=== PATIENT | female | born 1965 | race Caucasian/White ===

== ENCOUNTER → 2022-01-20 15:08 | Outpatient (CLI) | payer OTHER, SELFPAY ==
--- NOTE | ~2022-01-20 | XR_ITS ---
EXAMINATION:XR_[id number]_CR DATE: 01/20/2022 15:30 INDICATION: Neck pain TECHNIQUE: AP, lateral, lateral swimmers and odontoid views of the cervical spine are provided. COMPARISON: None FINDINGS: Alignment is normal. The odontoid is intact. No fracture is identified. There is moderate l oss of intervertebral disc space height at C5-6 and C6-7. Small degenerative osteophytes project from the anterior endplates of multiple vertebral bodies. There is moderate multilevel facet and uncovert ebral joint osteoarthritis. Prevertebral soft tissues are normal. IMPRESSION: 1. Mild to moderate cervical spondylosis without acute findings. Reviewed, dictated and finalized at location F. COUNSELOR
--- NOTE | ~2022-01-20 | XR_ITS ---
XR lumbar spine 2-3V 01/20/2022 15:30 Indication: Cervicalgia Procedure: 3 views of the lumbar spine Comparison: No prior studies for comparison. Findings: Normal lumbar lordosis. Vertebral body and disc heights are preserved. No fracture, subluxa tion or dislocation. Pedicles intact. There are cholecystectomy clips. Sacral foramen are symmetric. Impression: 1: No significant abnormality of the lumbar spine. Reviewed, dictated and finalized at location B. MACHINERY MECHANIC Impression: 1: No significant abnormality of the lumbar spine.
--- NOTE | ~2022-01-20 | XR_ITS ---
EXAMINATION: XR thoracic spine 3V DATE: 01/20/2022 15:30 INDICATION: Thoracic back pain TECHNIQUE: AP, lateral and lateral swimmer's views of the thoracic spine were obtained. COMPARISON: None. FINDINGS: There is no fracture, dislocation, or subluxation. The vertebral body heights are normal. T here is mild loss of intervertebral disc space height in the midthoracic spine. Small degenerative os teophytes project from the anterior endplates of multiple vertebral bodies. Surgical clips in the rig ht upper quadrant are likely from prior cholecystectomy. IMPRESSION: 1. Moderate thoracic spondylosis without acute findings. Reviewed, dictated and finalized at location F. OR PUBLICATIONS
== END ==
PROVIDERS: PCP Physician Assistant; Visit Provider Physician Assistant
DX: M47.894 Other spondylosis, thoracic region (principal); M47.892 Other spondylosis, cervical region
CPT/HCPCS: 72040; 72072; 72100

== ENCOUNTER 2022-03-03 01:11 | Day surgery (SDC) | payer OTHER, SELFPAY ==
[2022-02-21 15:46] VITALS: BMI 34.8
[2022-03-03 10:03] VITALS: BP 165/96; PULSE 86; RESP 20; TEMP 36.6; O2SAT 99; BMI 34.9
--- NOTE | 2022-03-03 10:15 | WPDGICN ---
Assessment and Plan Assessment and plan (1) Encounter for screening colonoscopy: Code(s): Z12.11 - Encounter for screening for malignant neoplasm of colon Status: Acute Assessment and Plan: Patient presents for screening colonoscopy. Appears be at average risk for colon polyps. High-fiber diet is advised. Further recommendations may be given after endoscopy. GI Consult Note Consult date/time: 03/03/22 10:15 HPI: Rebecca Willard is a 56 year old female Presents for screening colonoscopy. Patient reports that her current weight appetite and bowel movements are normal. She denies abdominal pain. She has had no bleeding. Family history is significant paternal grandmother had colon cancer. There are no first-degree relatives with polyps or cancer that she is aware of. Patient does have multiple food intolerance is. In his suspicious for irritable bowel syndrome. She presents today for neoplasia screening. Review of Systems Review of Systems: All systems reviewed & are unremarkable except as noted in HPI and below PMFSH Past Medical History Medical History (Updated 03/03/22 @ 10:17 by Odin Aldana MD) History of episiotomy Ovarian teratoma multiple surgeries Surgical History Surgical History H/O hernia repair x4-5 History of colonoscopy (~11/2009) Hx of cholecystectomy Family History Family History Father Family history of obesity Family history of malignant neoplasm Family history of diabetes mellitus in first degree relative Family history of atrial fibrillation Diabetes mellitus Sibling Family history of obesity Grandparent Family history of malignant neoplasm Diabetes mellitus Social History Social History Smoking status: Never smoker Alcohol intake: current Alcohol use details: 1-2 drinks monthly Living arrangements: with family Spiritual care concerns: No Meds Home Medications and Allergies Home Medications Medication Instructions Recorded Confirmed Type levothyroxine 137 mcg capsule 137 mcg PO DAILY 04/21/20 02/21/22 History dapagliflozin [Farxiga] 10 mg PO DAILY 02/21/22 02/21/22 History dulaglutide [Trulicity] 1.5 mg SUBCUT WEEKLY 02/21/22 02/21/22 History Allergies Allergy/AdvReac Type Severity Reaction Status Date / Time iodine Allergy Mild Hives / Verified 03/03/22 10:02 Red Face benzoin Allergy Unknown Hives Verified 03/03/22 10:02 sitagliptin Allergy Unknown Rash Verified 03/03/22 10:02 erythromycin base AdvReac Unknown ABD PAIN, Verified 03/03/22 10:02 NAUSEA TAPES--ADHESIVE, PAPER, Allergy Severe LOCAL SKIN Uncoded 03/03/22 10:02 STERISTRIPS, ETC REACTION, BLISTERS, BREAKDOWN Vital Signs Vital Signs - 24 hr 03/03/22 10:03 Temperature 98 F Pulse Rate 86 Respiratory Rate 20 Blood Pressure 165/96 H Pulse Oximetry 99 Exam Narrative: Physical exam reveals patient to be alert. Vital signs stable. HEENT exam is unremarkable. Patient is anicteric. Lungs are clear to auscultation and percussion. Heart is without murmur or extra sounds. Abdominal exam bowel sounds are present soft nontender with no hepatosplenomegaly. Digital external rectal exam is normal.
--- NOTE | 2022-03-03 10:22 | WPDANESEPPF ---
Anes - Initial Pre Proc Eval Procedure: Operation Date: 03/03/22 11:00 Proposed Procedures p Screening Colonoscopy - Odin Aldana MD Date/Time: 03/03/22 10:22 Surgeon: Odin Aldana MD Pre Op Diagnosis: neoplasm screening Patient Data Age: 56 Gender: F Height: 1.65 m Weight: 95.1 kg Last Vital Signs Temp 36.6 C 03/03/22 10:03 Pulse 86 03/03/22 10:03 Resp 20 03/03/22 10:03 BP 165/96 H 03/03/22 10:03 Pulse Ox 99 03/03/22 10:03 Allergies Allergy/AdvReac Type Severity Reaction Status Date / Time iodine Allergy Mild Hives / Verified 03/03/22 10:20 Red Face benzoin Allergy Unknown Hives Verified 03/03/22 10:20 sitagliptin Allergy Unknown Rash Verified 03/03/22 10:20 erythromycin base AdvReac Unknown ABD PAIN, Verified 03/03/22 10:20 NAUSEA TAPES--ADHESIVE, PAPER, Allergy Severe LOCAL SKIN Uncoded 03/03/22 10:20 STERISTRIPS, ETC REACTION, BLISTERS, BREAKDOWN Home Medications Medication Instructions Recorded Confirmed Type levothyroxine 137 mcg capsule 137 mcg PO DAILY 04/21/20 02/21/22 History dapagliflozin [Farxiga] 10 mg PO DAILY 02/21/22 02/21/22 History dulaglutide [Trulicity] 1.5 mg SUBCUT WEEKLY 02/21/22 02/21/22 History Patient hx anesthesia problems: none Family hx anesthesia problems: none Results Review: All pre-operative results and documents have been reviewed as part of the pre-operative evaluation. [facility] Past Medical History Medical History (Updated 03/03/22 @ 10:23 by Sin Grace MD) History of episiotomy Obesity Ovarian teratoma multiple surgeries Surgical History Surgical History H/O hernia repair x4-5 History of colonoscopy (~11/2009) Hx of cholecystectomy Family History Family History Father Family history of obesity Family history of malignant neoplasm Family history of diabetes mellitus in first degree relative Family history of atrial fibrillation Diabetes mellitus Sibling Family history of obesity Grandparent Family history of malignant neoplasm Diabetes mellitus Social History Social History Smoking status: Never smoker Alcohol intake: current Alcohol use details: 1-2 drinks monthly Living arrangements: with family Spiritual care concerns: No Anes - Eval Final PreProcedure Day of Procedure 03/03/22 10:22 Patient weight: obese Heart: regular rate and rhythm Lungs: clear to auscultation Airway: Mallampati scale class III Neurological: alert and oriented Last oral intake: >/= 8 hours ASA classification: III Emergent: no Anesthetic plan: proceed Anesthesia type and monitoring: general GIVS and standard monitoring Results Review: All pre-operative results and documents have been reviewed as part of the pre-operative evaluation. Informed Consent: The patient's anesthetic plan and its attendant risks and benefits were discussed with the patient/family/POA. Questions were solicited and answers provided to the satisfaction of the patient/family/POA.
[2022-03-03] MEDS: LACTATED RINGERS 1,000 ML 150 ML IV CONT (10:25)
[2022-03-03 10:26] LABS: Glucose Point of Care 118 mg/dl (65-105)
[2022-03-03 11:05] VITALS: BP 129/81; PULSE 103; RESP 23; O2SAT 97
[2022-03-03 11:15] VITALS: BP 123/72; PULSE 91; RESP 22; O2SAT 97
[2022-03-03 11:25] VITALS: BP 129/86; PULSE 79; RESP 19; O2SAT 98
== END 2022-03-03 11:46 | disposition home or self-care (01) ==
PROVIDERS: PCP Family Medicine; Visit Provider Internal Medicine Gastroenterology
PROC: 0DJD8ZZ Inspection of Lower Intestinal Tract, Via Natural or Artificial Opening Endoscopic (ICD-10-PCS; CPT 45378; principal; 2022-03-03 11:00)
DX: Z12.11 Encounter for screening for malignant neoplasm of colon (principal); Z80.0 Family history of malignant neoplasm of digestive organs; K64.8 Other hemorrhoids; D12.5 Benign neoplasm of sigmoid colon
CPT/HCPCS: 45385; 82948; 88305; J2704; J7120

== ENCOUNTER 2023-11-10 16:16 | Emergency (ER) | payer OTHER, SELFPAY ==
--- NOTE | ~2023-11-10 | XR_ITS ---
EXAM: XR wrist LT min 3V DATE: 11/10/2023 16:38 HISTORY: left ulnar wrist pain s/p fall today . COMPARISON: None available. FINDINGS: Normal mineralization. No fracture or dislocation. No lytic or blastic lesion. Mild scatte red degenerative change. No erosion or periosteal change. Soft tissues within normal limits. IMPRESSION: No acute osseous finding in the left wrist. Reviewed, dictated and finalized at location K. HOLOGIST
--- NOTE | 2023-11-10 16:18 | ED.UPPEXIN ---
HPI - Extremity Injury (Upper) General Chief Complaint: Extremity Injury, Upper Stated Complaint: left wrist injury Time Seen by Provider: 11/10/23 17:04 Source: patient and RN notes reviewed Mode of arrival: ambulatory Limitations: no limitations History of Present Illness HPI narrative: 57-year-old female presents with concern for left wrist injury. She reports she fell down the stairs 11:00 a.m. this morning and initially hit her knees and then she hurt her wrist, she is unsure how she hurt wrist. She reports lateral wrist pain hurts worse with rotation. She denies intervention. She denies decreased strength, sensation, range of motion MD complaint: injury to: left and wrist Related Data Home Medications Medication Instructions Recorded Confirmed levothyroxine 137 mcg capsule 137 mcg PO DAILY 04/21/20 11/10/23 dapagliflozin propanediol 10 mg 10 mg PO DAILY 02/21/22 11/10/23 tablet (Farxiga) dulaglutide 1.5 mg/0.5 mL 1.5 mg subcut WEEKLY 09/27/22 11/10/23 subcutaneous pen injector ([facility]) Allergies Allergy/AdvReac Type Severity Reaction Status Date / Time iodine Allergy Mild Hives / Verified 11/10/23 16:55 Red Face benzoin Allergy Unknown Hives Verified 11/10/23 16:55 sitagliptin Allergy Unknown Rash Verified 11/10/23 16:55 erythromycin base AdvReac Unknown ABD PAIN, Verified 11/10/23 16:55 NAUSEA TAPES--ADHESIVE, PAPER, Allergy Severe LOCAL SKIN Uncoded 11/10/23 16:55 STERISTRIPS, ETC REACTION, BLISTERS, BREAKDOWN Review of Systems Review of Systems: CONSTITUTIONAL: Denies malaise, chills, sweats, or fever. SKIN: Denies rash or itching, open skin, laceration, abrasion, redness, warmth, swelling. MUSCULOSKELETAL: Reports left wrist pain NEUROLOGIC: Denies numbness, weakness All systems reviewed & are unremarkable except as noted in HPI and below PMFSH Past Medical History Medical History Acute sinusitis Encounter for screening colonoscopy History of episiotomy Obesity Ovarian teratoma multiple surgeries Surgical History Surgical History H/O hernia repair x4-5 History of colonoscopy (~11/2009) Hx of cholecystectomy Family History Family History Father Family history of obesity Family history of malignant neoplasm Family history of diabetes mellitus in first degree relative Family history of atrial fibrillation Diabetes mellitus Sibling Family history of obesity Grandparent Family history of malignant neoplasm Diabetes mellitus Social History Social History Social History: Caffeine-rarely Smoking status: Never smoker Alcohol intake: current Alcohol use details: 1-2 drinks monthly Lack of Transportation: No Lack of Food: Never True Current Housing: I Have Housing Concerned About Future Housing: No Difficulty Paying Gas/Electric Bills: No Difficulty Paying for Meds: No Currently Unemployed: No Education: Decline to Answer Difficulty w/ Childcare or Family Care: No Living arrangements: with family Spiritual care concerns: No Comments At time of signature, agree with nursing past medical, surgical, social and family history. There is no relevant family history pertinent to the presenting complaint Exam Narrative: GENERAL: Well-appearing, well-nourished, and in no acute distress. HEAD: Normocephalic, atraumatic. EYES: PERRLA, conjunctivae clear NECK: Supple. CHEST: Speaks in full sentences. No respiratory distress. HEART: Regular rate and rhythm. Normal and equal peripheral pulses. EXTREMITIES: Left hand, wrist, digits have grossly normal strength and sensation, normal range of motion. No edema or ecchymosis. Normal sensation with sensitivity to light touch and pain. Lateral wrist tenderness.
[2023-11-10 16:26] VITALS: BP 156/92; PULSE 84; RESP 16; TEMP 37.7; O2SAT 99
== END 2023-11-10 17:18 | disposition home or self-care (01) ==
PROVIDERS: Emergency Provider Nurse Practitioner; PCP Emergency Medicine
DX: S63.502A Unspecified sprain of left wrist, initial encounter (principal); S66.912A Strain of unspecified muscle, fascia and tendon at wrist and hand level, left hand, initial encounter; W10.9XXA Fall (on) (from) unspecified stairs and steps, initial encounter; E66.9 Obesity, unspecified; Z68.34 Body mass index [BMI] 34.0-34.9, adult
CPT/HCPCS: 73110; 99213; G0463